=== PATIENT | female | born 1950 | race Caucasian/White ===

== ENCOUNTER 2018-02-09 22:58 | Emergency (ER) | payer MEDICARE, BC ==
[2018-02-09] MEDS ORDERED: HYDROmorphone 0.5 MG/0.5 ML SYRINGE IVPUSH STA (23:17)
[2018-02-09] MEDS ORDERED: Ondansetron 4 MG/2 ML SDV IVPUSH ONE (23:18)
[2018-02-09 23:26] VITALS: BP 114/60
[2018-02-09] MEDS ORDERED: Sodium Chloride 0.9% 1,000 ML IV SCH (23:30)
--- NOTE | 2018-02-09 23:37 | EDM.PDOC ---
ED HPI GENERAL MEDICAL PROBLEM - General Chief Complaint: Lower Extremity Injury/Pain Stated Complaint: [facility] Time Seen by Provider: 02/09/18 23:12 Source of Information: Reports: Patient, Significant Other (Fiance) History Limitations: Reports: No Limitations - History of Present Illness INITIAL COMMENTS - FREE TEXT/NARRATIVE: The patient states that she tripped and fell in her garage around 22:00 this evening, resulting in severe right upper thigh pain. She states that she is otherwise uninjured. She states that she is otherwise uninjured. No prior right thigh or hip injury. EMS gave 50 g fentanyl intranasally en route. The patient's last oral intake was around 21:30 tonight. The patient's PCP is Louise Nuno. Right Upper Leg Pain Score (Numeric/FACES): 4 - Related Data Allergies Allergy/AdvReac Type Severity Reaction Status Date / Time codeine Allergy Nausea Verified 11/21/15 02:07 nitrofurantoin Allergy Nausea Verified 11/21/15 02:07 macrocrystalline [From Macrodantin] prochlorperazine Allergy Nausea Verified 11/21/15 02:07 [From Compazine] prochlorperazine edisylate Allergy Nausea Verified 11/21/15 02:07 [From Compazine] prochlorperazine maleate Allergy Nausea Verified 11/21/15 02:07 [From Compazine] Home Meds: Home Meds ALPRAZolam [Alprazolam ODT] 0.5 mg PO TID PRN 11/21/15 [History] Aspirin 81 mg PO DAILY 11/21/15 [History] Gabapentin [Gralise] 600 mg PO BEDTIME 11/21/15 [History] Levothyroxine 137 mcg PO DAILY 11/21/15 [History] Meloxicam 15 mg PO DAILY 11/21/15 [History] Omeprazole [Prilosec] 40 mg PO DAILY 11/21/15 [History] Pramipexole [Mirapex] 0.5 mg PO BEDTIME 11/21/15 [History] Rosuvastatin [Crestor] 20 mg PO MOWEFR 11/21/15 [History] Sertraline [Zoloft] 200 mg PO DAILY 11/21/15 [History] Triamterene/Hydrochlorothiazid [Dyazide 37.5-25] 1 cap PO DAILY 11/21/15 [ History] Ubidecarenone [Co Q-10] 10 mg PO DAILY 11/21/15 [History] buPROPion [Wellbutrin XL] 150 mg PO DAILY 11/21/15 [History] traMADol [Ultram] 50 mg PO Q6H PRN 11/21/15 [History] Past Medical History Cardiovascular History: Reports: High Cholesterol, Hypertension Gastrointestinal History: Reports: GERD, PUD (duodenal) Neurological History: Reports: Other (See Below) (left sciatica) Psychiatric History: Reports: Anxiety, Depression, Other (See Below) (Restless leg syndrome) Endocrine/Metabolic History: Reports: Hypothyroidism - Past Surgical History HEENT Surgical History: Reports: Oral Surgery (Numerous teeth extracted), Other (See Below) (Right parotid gland excision) GI Surgical History: Reports: Appendectomy, EGD Female Surgical History: Reports: Breast Biopsy (left x 3, right x 1 - all benign), Hysterectomy Neurological Surgical History: Reports: Lumbar Spine (Microdiscectomy) Musculoskeletal Surgical History: Reports: Arthroscopic Knee (right, x 2), Carpal Tunnel (bilateral), Other (See Below) (Right 2nd toe Abraham neuroma excision) Social & Family History - Family History Family Medical History: Noncontributory - Tobacco Use Smoking Status *Q: Former Smoker Years of Tobacco use: 28 Packs/Tins Daily: 0.5 Month/Year Tobacco Last Used: Quit 2014 Second Hand Smoke Exposure: No - Alcohol Use Alcohol Use History: No - Recreational Drug Use Recreational Drug Use: No - Living Situation & Occupation Living situation: Reports: , with Significant Other (Fiance) Occupation: Unemployed Review of Systems - Review of Systems Review Of Systems: ROS reveals no pertinent complaints other than HPI. ED EXAM, GENERAL - Physical Exam Exam: See Below Exam Limited By: No Limitations General Appearance: Alert, WD/WN, No Apparent Distress Eye Exam: Bilateral Eye: Normal Inspection Ears: Normal External Exam, Hearing Grossly Normal Nose: Normal Inspection, No Blood Throat/Mouth: Normal Inspection, Normal Lips, Normal Voice, No Airway Compromise Head: Atraumatic, Normocephalic Neck: Normal Inspection, Full Range of Motion Respiratory/Chest: No Respiratory Distress, Lungs Clear, Normal Breath Sounds, No Accessory Muscle Use Cardiovascular: Normal Peripheral Pulses, Regular Rate, Rhythm, No Edema, No Gallop, No JVD, No Murmur, No Rub Peripheral Pulses: 4+: Radial (L), Radial (R) GI/Abdominal: Normal Bowel Sounds, Soft, Non-Tender, No Organomegaly, No Distention, No Abnormal Bruit, No Mass (Female) Exam: Deferred Rectal (Female) Exam: Deferred Extremities: Normal Capillary Refill, Other (Significant tender bulge to the proximal right thigh, consistent with a proximal femur fracture. The right lower extremity is foreshortened, when compared to the left, and externally rotated. Neurovascular status of the right lower extremity appears to be intact. ) Neurological: Alert, Oriented, Normal Cognition, No Motor/Sensory Deficits Psychiatric: Normal Affect Skin Exam: Warm, Dry, Intact, Normal Color, No Rash Course - Vital Signs Last Recorded V/S: Last Vital Signs Temp 36.8 C 02/09/18 23:05 Pulse 77 02/09/18 23:05 Resp 16 02/09/18 23:05 BP 114/60 02/09/18 23:05 Pulse Ox 100 02/09/18 23:05 - Orders/Labs/Meds Orders: Active Orders 24 hr Category Date Time Status EKG Documentation Completion [RC] STAT Care 02/09/18 23:16 Active Lopez Catheter Insertion [Insert Urinary Catheter] [OM. Care 02/09/18 23:30 Ordered PC] Q24H Urinary Catheter Assessment [RC] ASDIRECTED Care 02/09/18 23:17 Active Femur Min 1V Rt [CR] Stat Exams 02/09/18 23:15 Taken Potassium Chloride [KCl 10 MEQ in Water 100 ML] 10 meq Med 02/10/18 00:40 Active Premix Bag 1 bag IV ONETIME Sodium Chloride 0.9% [Normal Saline] 1,000 ml Med 02/09/18 23:30 Active IV ASDIRECTED Medication Orders Sodium Chloride (Normal Saline) 1,000 mls @ 100 mls/hr IV ASDIRECTED OLGA Last Admin: 02/09/18 23:34 Dose: 100 mls/hr Potassium Chloride 10 meq/ (Premix) 100 mls @ 100 mls/hr IV ONETIME STA Stop: 02/10/18 01:39 Last Admin: 02/10/18 01:02 Dose: 100 mls/hr Labs: Laboratory Tests 02/09/18 02/09/18 Range/Units 23:37 23:37 WBC 14.20 H (3.98-10.04) K/mm3 RBC 4.06 (3.98-5.22) M/mm3 Hgb 11.9 (11.2-15.7) gm/L Hct 36.6 (34.1-44.9) % MCV 90.1 (79.4-94.8) fl MCH 29.3 (25.6-32.2) pg MCHC 32.5 (32.2-35.5) g/dl RDW Std Deviation 43.4 (36.4-46.3) fL Plt Count 275 (182-369) K/mm3 MPV 10.7 (9.4-12.3) fl Neutrophils % (Manual) 76 H (40-60) % Band Neutrophils % 0 (0-10) % Lymphocytes % (Manual) 8 L (20-40) % Atypical Lymphs % 7 % Monocytes % (Manual) 8 (2-10) % Eosinophils % (Manual) 1 (0.7-5.8) % Basophils % (Manual) 0 L (0.1-1.2) Platelet Estimate Adequate Plt Morphology Comment Normal RBC Morph Comment Normal Sodium 140 (136-145) mEq/L Potassium 2.6 L (3.5-5.1) mEq/L Chloride 103 (98-107) mEq/L Carbon Dioxide 28 (21-32) mEq/L Anion Gap 11.6 (5-15) BUN 16 (7-18) mg/dL Creatinine 1.0 (0.55-1.02) mg/dL Est Cr Clr Drug Dosing 47.79 mL/min Estimated GFR (MDRD) 55 (>60) mL/min BUN/Creatinine Ratio 16.0 (14-18) Glucose 128 H (80-115) mg/dL Calcium 9.8 (8.5-10.1) mg/dL Magnesium 1.9 (1.8-2.4) mg/dl Total Bilirubin 0.5 (0.2-1.0) mg/dL AST 46 H (15-37) U/L ALT 36 (14-59) U/L Alkaline Phosphatase 102 (46-116) U/L Total Protein 6.9 (6.4-8.2) g/dl Albumin 3.9 (3.4-5.0) g/dl Globulin 3.0 gm/dL Albumin/Globulin Ratio 1.3 (1-2) Meds: Medications Generic Name Dose Route Start Last Admin Trade Name Freq PRN Reason Stop Dose Admin Sodium Chloride 1,000 mls @ 100 mls/hr 02/09/18 23:30 02/09/18 23:34 Normal Saline IV 100 mls/hr ASDIRECTED OLGA Administration Potassium Chloride 10 meq/ 100 mls @ 100 mls/hr 02/10/18 00:40 02/10/18 01:02 Premix IV 02/10/18 01:39 100 mls/hr ONETIME STA Administration Discontinued Medications Generic Name Dose Route Start Last Admin Trade Name Freq PRN Reason Stop Dose Admin Hydromorphone HCl 0.5 mg 02/09/18 23:17 02/09/18 23:34 Dilaudid IVPUSH 02/09/18 23:18 0.5 mg ONETIME STA Administration Hydromorphone HCl 1 mg 02/10/18 00:00 02/10/18 00:06 Dilaudid IVPUSH 02/10/18 00:01 1 mg ONETIME STA Administration Ondansetron HCl 4 mg 02/09/18 23:18 02/09/18 23:35 Zofran IVPUSH 02/09/18 23:19 4 mg ONETIME ONE Administration - Re-Assessments/Exams Free Text/Narrative Re-Assessment/Exam: 02/10/18 00:24 Single-view radiograph of the right hip appears to demonstrate a proximal femur fracture with significant displacement. The lateral aspect of the greater trochanter is not involved, however, the medial aspect of the greater trochanter may be. Formal read per the Radiologist pending. The patient's WBC count is elevated at 14.20, but with 0% bandemia. The remainder of her CBC is normal. The patient's CMP finds the potassium to be significantly depressed at 2.6. Her blood glucose is elevated at 128. The remainder of the CMP is normal. Her Mg level is normal. The patient states that she has a history of hypokalemia, and that they do not know why she has it. She states that her father had it, as well. In order to keep the patient npo, I have ordered 10 mEq K-rider. Daisha PETTY has been instructed to place the right lower extremity into traction. 02/10/18 00:45 This facility does not have orthopedic coverage at this time. The patient will require transfer to [facility]. She prefers [facility]. Case discussed with [facility] Call at 00:22. Case then discussed with Dr. Mckeon, Orthopedic Surgeon on-call at [facility], at 00:37. He recommended that the patient be transferred to the ED. Case then discussed with Dr. Winn, Emergency Physician at [facility], at 00:41. He accepts the patient for transfer. We will transfer by ground ambulance. The radiographic image has been pushed to [facility]. Departure - Departure Time of Disposition: 00:45 Disposition: DC/Tfer to Acute Hospital 02 Condition: Fair Clinical Impression: Fracture of proximal end of right femur, Hypokalemia - Discharge Information Referrals: Louise Nuno FLEET TECHNICIAN [Primary Care Provider] - Forms: ED Department Discharge - My Orders Last 24 Hours: My Active Orders 02/09/18 23:15 Femur Min 1V Rt [CR] Stat 02/09/18 23:16 EKG Documentation Completion [RC] STAT 02/09/18 23:17 Urinary Catheter Assessment [RC] ASDIRECTED 02/09/18 23:30 Lopez Catheter Insertion [Insert Urinary Catheter] [OM.PC] Q24H Sodium Chloride 0.9% [Normal Saline] 1,000 ml IV ASDIRECTED 02/10/18 00:40 Potassium Chloride [KCl 10 MEQ in Water 100 ML] 10 meq Premix Bag 1 bag IV ONETIME - Assessment/Plan Last 24 Hours: My Active Orders 02/09/18 23:15 Femur Min 1V Rt [CR] Stat 02/09/18 23:16 EKG Documentation Completion [RC] STAT 02/09/18 23:17 Urinary Catheter Assessment [RC] ASDIRECTED 02/09/18 23:30 Lopez Catheter Insertion [Insert Urinary Catheter] [OM.PC] Q24H Sodium Chloride 0.9% [Normal Saline] 1,000 ml IV ASDIRECTED 02/10/18 00:40 Potassium Chloride [KCl 10 MEQ in Water 100 ML] 10 meq Premix Bag 1 bag IV ONETIME
[2018-02-10] MEDS ORDERED: Potassium Chloride 10 MEQ in Premix Bag 1 BAG IV STA (00:40)
[2018-02-10] MEDS ORDERED: HYDROmorphone 0.5 MG/0.5 ML SYRINGE IVPUSH STA ×2 (01:15)
--- NOTE | 2018-02-10 08:37 | CR ---
Right femur: Single AP view of the right femur were obtained. Distal portions of the bone were not included on the exam. Subtrochanteric and intertrochanteric fracture are seen. Displacement is noted up to 2.5 cm. No additional abnormality is noted. Impression: 1. Displaced intertrochanteric and subtrochanteric fracture within the right proximal femur. Diagnostic code #3
== END 2018-02-10 01:45 ==
LOC: JD.ED 22:58
DX: S72.141A Displaced intertrochanteric fracture of right femur, initial encounter for closed fracture (principal); S72.21XA Displaced subtrochanteric fracture of right femur, initial encounter for closed fracture; E87.6 Hypokalemia; Z87.891 Personal history of nicotine dependence; I10 Essential (primary) hypertension; F41.9 Anxiety disorder, unspecified; F32.9 Major depressive disorder, single episode, unspecified; E03.9 Hypothyroidism, unspecified; Z79.82 Long term (current) use of aspirin; Z79.899 Other long term (current) drug therapy; Z88.8 Allergy status to other drugs, medicaments and biological substances; Z88.5 Allergy status to narcotic agent; W01.198A Fall on same level from slipping, tripping and stumbling with subsequent striking against other object, initial encounter
CPT/HCPCS: 36415; 51702; 73551; 80053; 83735; 85007; 85027; 93005; 96361; 96365; 96375; 96376; 99285; J1170; J2405; J3480; J7040; 99284

== ENCOUNTER 2022-12-23 16:47 | Emergency (ER) | payer MEDICARE, BC ==
[2022-12-23] MEDS ORDERED: Aspirin 81 MG Tab.Chew PO ONE (17:16)
[2022-12-23] MEDS ORDERED: Ondansetron 4 MG/2 ML SDV IVPUSH ONE (17:16)
[2022-12-23] MEDS ORDERED: Sodium Chloride 0.9% 10 ML Syringe FLUSH PRN (17:16)
[2022-12-23] MEDS ORDERED: Famotidine 20 MG/2 ML SDV IVPUSH ONE (17:17)
[2022-12-23] MEDS ORDERED: Sodium Chloride 0.9% 1,000 ML IV SCH (17:30)
[2022-12-23] MEDS ORDERED: Heparin Sodium 5,000 Units/ML Vial IVPUSH ONE (18:20)
[2022-12-23] MEDS ORDERED: Heparin Sodium/D5W 25,000 UNITS/500 ML BAG IV SCH (18:30)
[2022-12-23] MEDS ORDERED: Levalbuterol HCl 1.25 MG/0.5 ML Neb NEB ONE (18:40)
[2022-12-23 20:35] VITALS: BP 118/74; PULSE 70
== END 2022-12-23 19:00 ==
LOC: JD.ED 16:47
DX: I21.4 Non-ST elevation (NSTEMI) myocardial infarction (principal); J44.9 Chronic obstructive pulmonary disease, unspecified; K21.9 Gastro-esophageal reflux disease without esophagitis; I10 Essential (primary) hypertension; E66.9 Obesity, unspecified; Z68.34 Body mass index [BMI] 34.0-34.9, adult; Z88.5 Allergy status to narcotic agent; Z88.8 Allergy status to other drugs, medicaments and biological substances; Z79.82 Long term (current) use of aspirin; Z79.899 Other long term (current) drug therapy; Z87.891 Personal history of nicotine dependence
CPT/HCPCS: 36415; 71045; 80053; 84484; 85025; 93005; 94640; 96361; 96374; 96375; 99285; A9270; J1644; J2405; J3490; J7030; 93010

== ENCOUNTER 2024-05-28 07:00 | Day surgery (SDC) | payer MEDICARE, BC ==
[~2024-05-28 07:00] MED LIST: HYDROmorphone 0.5 MG/0.5 ML Syringe IVPUSH PRN; Ondansetron 4 MG/2 ML SDV IVPUSH PRN; Sodium Chloride 0.9% 10 ML Syringe FLUSH PRN; fentaNYL 100 MCG/2 ML SDV IVPUSH PRN
[2024-05-28] MEDS ORDERED: Propofol 200 MG/20 ML SDV ONE ×3 (07:22)
[2024-05-28] MEDS ORDERED: fentaNYL 100 MCG/2 ML SDV ONE (07:23)
[2024-05-28] MEDS ORDERED: Lidocaine 2% 5 ML SDV ONE (07:24)
[2024-05-28] MEDS ORDERED: Dexamethasone 4 MG/ML 5 ML MDV ONE (07:24)
[2024-05-28] MEDS ORDERED: Ondansetron 4 MG/2 ML SDV ONE (07:24)
[2024-05-28] MEDS ORDERED: Ropivacaine 0.5% 5 MG/ML 30 ML SDV ONE (07:24)
[2024-05-28] MEDS: Lactated Ringers 1,000 ML IV SCH (07:40)
[2024-05-28] MEDS ORDERED: Midazolam 1 MG/ML 2 ML SDV ONE (07:56)
[2024-05-28] MEDS ORDERED: Bupivacaine 0.25% 10 ML SDV ONE (08:00)
[2024-05-28] MEDS ORDERED: ceFAZolin 2 GM Vial ONE (08:15)
[2024-05-28] MEDS ORDERED: Sodium Chloride 0.9% 10 ML Syringe FLUSH SCH (09:00)
[2024-05-28] MEDS: Morphine 8 MG, EPINEPHrine 0.3 MG, Cefuroxime 750 MG, Ketorolac 30 MG, Sodium Chloride ... PRN (09:14)
[2024-05-28] MEDS: Vancomycin 1 GM SDV ONE (09:19)
[2024-05-28] MEDS: Tranexamic Acid 1,000 MG/10 ML Vial ONE (09:19)
[2024-05-28] MEDS ORDERED: Acetaminophen/HYDROcodone 325-5 MG Tab PO PRN (10:33)
[2024-05-28 12:43] VITALS: BP 107/60; PULSE 64
== END 2024-05-28 13:35 | disposition home or self-care (01) ==
LOC: JD.SDS 07:00
PROVIDERS: ATTEND Orthopaedic Surgery
DX: M17.12 Unilateral primary osteoarthritis, left knee (principal); I10 Essential (primary) hypertension; E03.9 Hypothyroidism, unspecified; G47.33 Obstructive sleep apnea (adult) (pediatric); F41.9 Anxiety disorder, unspecified; J44.9 Chronic obstructive pulmonary disease, unspecified; E66.9 Obesity, unspecified; Z87.891 Personal history of nicotine dependence; Z68.21 Body mass index [BMI] 21.0-21.9, adult; Z79.899 Other long term (current) drug therapy; Z79.890 Hormone replacement therapy; Z79.82 Long term (current) use of aspirin; Z79.2 Long term (current) use of antibiotics; Z88.8 Allergy status to other drugs, medicaments and biological substances; Z88.5 Allergy status to narcotic agent
CPT/HCPCS: 01402; 73560-26-LT; 73560-LT; 97116-GP; 97161-GP; 99100; C1713; C1776; J0171; J0665; J0690; J0697; J1100; J1885; J2250; J2270; J2405; J2704; J2795; J3010; J3370; J3490; J7120

== ENCOUNTER 2025-05-27 19:13 | Emergency (ER) | payer MEDICARE, BC ==
[2025-05-27 20:02] LABS: BASOPHILS ABSOLUTE AUTO 0.1 K/mm3 (0.0-0.2); BASOPHILS PERCENT AUTO 0.9 % (0.0-1.0); EOSINOPHILS ABSOLUTE AUTO 0.0 K/mm3 (0.0-0.4); EOSINOPHILS PERCENT AUTO 0.6 % (0.0-6.0); IMMATURE GRAN ABSOLUTE AUTO 0.02 K/mm3 (0.00-0.05); IMMATURE GRAN PERCENT AUTO 0.3 % (0.0-0.4); LYMPHOCYTES ABSOLUTE AUTO 1.1 K/mm3 (1.0-4.8); LYMPHOCYTES PERCENT AUTO 17.1 % (24.0-44.0); MEAN PLATELET VOLUME 10.2 fl (9.4-12.3); MONOCYTES ABSOLUTE AUTO 0.5 K/mm3 (0.0-0.8); MONOCYTES PERCENT AUTO 7.9 % (0.0-8.0); NEUTROPHILS ABSOLUTE AUTO 4.7 K/mm3 (1.8-7.7); NEUTROPHILS PERCENT AUTO 73.2 % (41.0-71.0); NRBC ABSOLUTE 0.00 (0.00-0.02); NRBC PERCENT 0.0 % (0.0-0.2); PLATELET COUNT,PLT 202 K/mm3 (150-400); RED BLOOD CELL COUNT 5.25 M/mm3 (4.10-5.30); WHITE BLOOD CELL COUNT,WBC 6.48 K/mm3 (3.9-11.3)
[2025-05-27] MEDS: Ondansetron 4 MG/2 ML SDV IVPUSH ONE (20:03)
[2025-05-27 20:13] LABS: A/G RATIO 1.1 (1-2); ALANINE AMINOTRANSFERASE,ALT 23.0 U/L (14-59); ASPARTATE AMNIOTRANSFERASE,AST 24.0 U/L (15-37); BILIRUBIN TOTAL 0.6 mg/dL (0.2-1.0); BLOOD UREA NITROGEN,BUN 13.0 mg/dL (7-18); CARBON DIOXIDE,CO2 26.0 mEq/L (21-32); CHLORIDE,CL 103.0 mEq/L (98-107); CREATININE 0.9 mg/dL (0.55-1.02); EST CRCL DRUG DOSING (CG) 49.35 mL/min; ESTIMATED GFR 67.0 mL/min (>60); GLUCOSE RANDOM 105.0 mg/dL (70-99); POTASSIUM,K 3.7 mEq/L (3.5-5.1); PROTEIN TOTAL,TP 7.5 g/dl (6.4-8.2); SODIUM,NA 138.0 mEq/L (136-145)
[2025-05-27 20:18] LABS: TROPONIN I HIGH SENSITIVITY 82.0 pg/mL (<=51)
[2025-05-27 20:36] LABS: APPEARANCE,URINE CLEAR (Clear); GLUCOSE,URINE 2+ (Negative); OCCULT BLOOD,URINE 1+ (Negative)
[2025-05-27 20:43] LABS: EPITHELIAL CELLS,URINE 0-5 /hpf (0-5)
[2025-05-27 20:44] LABS: YEAST BUDDING,URINE MANY (NOT SEEN)
[2025-05-27] MEDS: Heparin Sodium 5,000 Units/ML Vial IVPUSH ONE (21:29)
[2025-05-27] MEDS: Heparin Sodium/D5W 250 ML IV SCH (21:30)
[2025-05-28 03:20] VITALS: BP 110/56; PULSE 68
== END 2025-05-28 03:19 ==
LOC: JD.ED 19:13
DX: I21.4 Non-ST elevation (NSTEMI) myocardial infarction (principal); I10 Essential (primary) hypertension; K21.9 Gastro-esophageal reflux disease without esophagitis; E78.00 Pure hypercholesterolemia, unspecified; E66.9 Obesity, unspecified; E03.9 Hypothyroidism, unspecified; Z88.1 Allergy status to other antibiotic agents; Z88.8 Allergy status to other drugs, medicaments and biological substances; Z79.82 Long term (current) use of aspirin; Z79.890 Hormone replacement therapy; Z79.899 Other long term (current) drug therapy; Z90.49 Acquired absence of other specified parts of digestive tract; Z90.710 Acquired absence of both cervix and uterus; Z68.25 Body mass index [BMI] 25.0-25.9, adult
CPT/HCPCS: 36415; 71045; 80053; 81001; 83690; 83735; 84484; 85025; 85730; 87086; 93005; 96365; 96366; 96375; 99285; A9270; J0696; J1644; J2405; 93010